=== PATIENT | male | born 1965 | race African-American/Black ===

== ENCOUNTER 2018-10-26 10:36 | Day surgery (SDC) | payer SELFPAY ==
[~2018-10-26] VITALS: Ht 185.4 cm; Wt 111.4 kg
[2018-10-26] MEDS ORDERED: BAYER CHEWABLE81 MG PO (12:55)
[2018-10-26 13:14] VITALS: BP 141/86; BMI 32.3
[2018-10-26] MEDS ORDERED: PERCOCET 5-3251 TAB PO (17:58)
[2018-10-26] MEDS ORDERED: DURICEF500 MG PO (17:59)
[2018-10-26 18:45] VITALS: BP 160/103
--- NOTE | 2018-10-26 18:47 | NUR ---
ARRIVED ON FLOOR VIA STRETCHER. SELF AMBULATED TO BED. ORIENTED TO ROOM AND CALL LIGHT. ASSESSMENT AND HISTORY PER FLOW SHEET. IV TO RIGHT AC PATENT AND NOW SL. DRESSING TO BILATERAL HANDS CDI.
[2018-10-26 20:00] VITALS: BP 135/94
[2018-10-26 23:17] VITALS: BP 160/107; Ht 185.4 cm; Wt 111.4 kg
[2018-10-27] VITALS: BP 134/81
--- NOTE | 2018-10-27 03:45 | NUR ---
I have reviewed this patient and I concur with the Shift Assessment completed by the Licensed Practical Nurse today this shift.
--- NOTE | 2018-10-27 06:18 | OP ---
PATIENT NAME: MARIZOL OCHOA MEDICAL RECORD: [id number] :65 LOCATION:[id number] ADMISSION DATE: SURGEON: JACOB TRUONG DO DATE OF OPERATION: 10/26/2018 PROCEDURE PERFORMED: Bilateral endoscopic carpal tunnel release. PREOPERATIVE DIAGNOSIS: Bilateral carpal tunnel syndrome. POSTOPERATIVE DIAGNOSIS: Bilateral carpal tunnel syndrome. INDICATIONS: Mr. 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 He had distal motor latency on the right of 6.6 and on the left of 8.8 milliseconds indicating this was a carpal tunnel syndrome. He was going to get it done, but it was denied apparently by his work comp. He reports that he wanted it done. He was sent to me for evaluation and for treatment. After examining the patient and he had positive carpal tunnel compression test and decreased sensation in the median nerve distribution in the hand and with the test findings, I informed him that we would do endoscopic and that he would be able to use his hands a few weeks after the surgery and that they would hurt and he will have swelling in them, but the pain would be wake him up like they had been waking him up every night and was unable to sleep, anytime he is driving or talking on the phone to go asleep that should get better, but the numbness may not get better or may not improve, may have lasting numbness due to the compression of the median nerve. He was okay with that and he is aware of the risks including infection, bleeding, further damage to the median nerve, damage to vessels in the area, continued numbness, and he signed the consent. SURGEON: Jacob Truong DO DESCRIPTION OF PROCEDURE: The patient was taken to the operative suite, laid in supine position, given general anesthetic and LMA was placed and the left upper extremity was prepped and draped in sterile fashion. The right upper extremity was also prepped and draped in a sterile fashion. A tourniquet was under the drapes above the elbow. The left was addressed first. The Esmarch was used to exsanguinate the left upper extremity and a tourniquet was inflated to 250 mmHg, was up for 11 minutes total throughout the procedure. An incision was then made along the wrist crease, just over the palmaris longus tendon centered over it. It was taken radially. Careful dissection was made down after skin incision was made bluntly with Sulemanell to the carpal tunnel. The forearm fascia was released from distal to proximal at that site and then the dilators were used into the carpal tunnel and the 2.7 scope sheath was placed into the carpal tunnel and the camera was brought in. The transverse carpal ligament was viewed and seen to be the only thing in the picture. A rasp and a probe were used to check it to make sure no transligamentous nerve was seen or felt; this was not the case, then the blade was brought in and raised up and transected the nerve divided the transverse carpal ligament until fat herniated down into the carpal tunnel, indicating good release. This was then removed and then a Ragnell was used to hold the soft tissue and any remaining soft tissue to connect to the transverse carpal ligament was divided under direct loupe magnification with a pickup and scissors in a spreading technique. The tourniquet was then let down and the site was injected with 10 mL of 0.25% Marcaine with epinephrine around the site OPERATIVE REPORT [id number] MARIZOL OCHOA and up into the palm. The site was then closed with 5-0 Monocryl in inverted interrupted fashion and perennial glue was placed on the incision. The right upper extremity was then addressed. The right upper extremity was exsanguinated with an Esmarch tourniquet was inflated to 250 mmHg, was up for approximately 10 minutes throughout the procedure. The incision was made centered over the palmaris longus tendon. This was taken radially and the dissection was made bluntly with Nicolasa. After the skin incision was made with a 15 blade scalpel, the forearm fascia was then released as was on the other side from distal to proximal over the median nerve and under direct loupe magnification, the dilator was then used to enter the carpal tunnel. A 2.7 sheath was put in and camera was then entered and the transverse carpal ligament was viewed and probed and rasped to check for interligamentous motor branch of the median nerve. This was not seen. Blade was then brought in and this was transected and once it was transected fat herniated down into the carpal tunnel and the tourniquet was let down after the remaining fibers were divided with a pickup and scissors under loupe magnification of the transverse carpal ligament. This site was then injected with 0.25% Marcaine with epinephrine 10 mL all around the site and was closed with 5-0 Monocryl in inverted interrupted fashion. Prineo glue was placed on the incision. Adaptic, 4 x 4s, Kerlix, and then Coban was lightly wrapped on each of the hands forming a nice dressing. It was not too tight. Total tourniquet time for both sides was 21 minutes; 11 on the on left and 10 on the right. Blood loss was minimal. COMPLICATIONS: None. TRANSINT:[id number] Voice Confirmation ID: [id number] DOCUMENT ID: [id number] JACOB TRUONG DO at 0618 CC: [id number] DICTATION DATE: 10/26/181751 VALUE ENGINEER: 10/26/18 [address] [facility] [address] [place] [address]
--- NOTE | 2018-10-27 09:20 | NUR ---
PATIENT ALERT AND ORIENTED X4. DRESSINGS INTACT TO BILATERAL WRISTS WITH NO DREAINAGE NOTED WITH GOOD ROM OF FINGERS AND CAP REFILL LESS THAN 3 SECONDS. DENIES ANY PAIN OR DISCOMFORT AT THIS TIME. IV DISCONTINUED AND VERBALIZED UNDERSTANTING OF DISCHARGE INSTRUCTIONS WITH RX GIVEN X2. STABLE AT TIME OF DISCHARGE.
[2018-10-27 09:29] VITALS: BP 124/80
== END 2018-10-27 10:14 | disposition home or self-care (01) ==
LOC: D.OPS 10:36 → D.MS 18:35 → D.OPS 10-27 10:14
PROVIDERS: ATTEND Orthopaedic Surgery
DX: G56.03 Carpal tunnel syndrome, bilateral upper limbs (principal); Z01.812 Encounter for preprocedural laboratory examination